=== PATIENT | female | born 1960 | race Two or more races ===

== ENCOUNTER 2016-09-11 19:20 | Emergency (ER) | payer SELFPAY ==
[2016-09-11] MEDS ORDERED: DIPH,PERTUSS(ACELL),TET VAC/PF 0.5 ML IM-VACC ONE (20:29)
[2016-09-11] MEDS ORDERED: LIDOCAINE 1%, 20ML ONE (20:29)
== END 2016-09-11 21:30 | disposition home or self-care (01) ==
LOC: ED 19:20
DX: S61.411A Laceration without foreign body of right hand, initial encounter (principal); W25.XXXA Contact with sharp glass, initial encounter; Y93.89 Activity, other specified; Y92.000 Kitchen of unspecified non-institutional (private) residence as the place of occurrence of the external cause; Y99.8 Other external cause status
CPT/HCPCS: 12001; 12002; 99283